=== PATIENT | female | born 1955 | race Caucasian/White ===

== ENCOUNTER → 2024-01-20 08:52 | Outpatient (REF) | payer OTHER, SELFPAY ==
[2024-01-20 10:26] LABS: HDL Cholesterol 74 mg/dl; LDL Cholesterol, Calculated 95 mg/dl; Total Cholesterol 183 mg/dl (50-199); Triglyceride 71 mg/dl (10-149); Very Low Density Lipoprotein 14 mg/dl (0-30)
== END ==
LOC: REG 08:52
PROVIDERS: ATTENDING PHYSICIAN Internal Medicine
DX: E78.2 Mixed hyperlipidemia (principal)
CPT/HCPCS: 36415; 80061

== ENCOUNTER → 2024-05-07 08:02 | Outpatient (REF) | payer OTHER, SELFPAY ==
[2024-05-07 10:08] LABS: Free T3 2.33 pg/ml (2.77-5.27); Free T4 1.29 ng/dl (0.78-2.19); Total Thyroxine 9.08 ug/dl (5.5-11.0)
[2024-05-07 10:21] LABS: TSH 1.96 uIU/ml (0.47-4.68)
== END ==
LOC: REG 08:02
PROVIDERS: ATTENDING PHYSICIAN Nurse Practitioner
DX: E03.9 Hypothyroidism, unspecified (principal)
CPT/HCPCS: 36415; 84436; 84439; 84443; 84481

== ENCOUNTER → 2024-06-11 07:08 | Outpatient (REF) | payer OTHER, SELFPAY | LOC: WDC 07:08 | PROVIDERS: ATTENDING PHYSICIAN Nurse Practitioner | DX: Z12.31 Encounter for screening mammogram for malignant neoplasm of breast (principal) | CPT/HCPCS: 77063; 77067 ==

== ENCOUNTER → 2024-08-27 08:39 | Outpatient (REF) | payer OTHER, SELFPAY ==
[2024-08-27 09:20] LABS: % Basophils 1.9 % (0-2); % Eosinophils 5.7 % (0-6); % Immature Granulocytes 0.2 % (0-0.5); % Lymphocytes 33.5 % (20.5-51.1); % Monocytes 11.1 % (1.7-9.3); % Neutrophils 47.6 % (42.2-75.2); Absolute Basophils 0.1 10^3/uL (0-0.2); Absolute Eosinophils 0.3 10^3/uL (0-0.7); Absolute Lymphocytes 1.6 10^3/uL (1.2-3.4); Absolute Monocytes 0.5 10^3/uL (0.1-0.6); Absolute Neutrophils 2.3 10^3/uL (1.4-6.5); Hematocrit 41.7 % (37.0-47.0); Hemoglobin 14.3 g/dL (12.0-16.0); Mean Corp Hgb Conc. 34.3 g/dL (33.0-37.0); Mean Corpuscular Hgb 33.8 pg (27.0-31.0); Mean Corpuscular Volume 98.6 fL (81.0-99.0); Mean Platelet Volume 9.8 fL (7.4-10.4); Nucleated Red Blood Cells % 0 %; Platelet Count 256 10^3/uL (130-400); Red Blood Cell Count 4.23 10^6/uL (4.20-5.40); Red Cell Dist. Width 12.8 % (11.5-14.5); White Blood Cell Count 4.8 10^3/uL (4.8-10.8)
[2024-08-27 09:50] LABS: ALT (SGPT) 11 U/L (0-35); AST (SGOT) 23 U/L (14-36); Albumin 4.2 g/dl (3.5-5.0); Alkaline Phosphatase 54 U/L (38-126); Blood Urea Nitrogen 19 mg/dl (7-17); Calcium 9.7 mg/dl (8.4-10.2); Carbon Dioxide 29 mmol/L (22-30); Chloride 103 mmol/L (98-107); Glucose 100 mg/dl (70-99); Sodium 141 mmol/L (135-145); Total Bilirubin 0.7 mg/dl (0.2-1.3); Total Cholesterol 182 mg/dl (50-199); Total Protein 6.7 g/dl (6.3-8.2); Triglyceride 60 mg/dl (10-149); Very Low Density Lipoprotein 12 mg/dl (0-30); eGFR > 60.00
[2024-08-27 10:09] LABS: HDL Cholesterol 74 mg/dl; LDL Cholesterol, Calculated 96 mg/dl; Potassium 6.1 mmol/L (3.5-5.1)
[2024-08-27 10:26] LABS: TSH 1.49 uIU/ml (0.47-4.68)
== END ==
LOC: REG 08:39
PROVIDERS: ATTENDING PHYSICIAN Nurse Practitioner; FAMILY PHYSICIAN Internal Medicine
DX: Z00.00 Encounter for general adult medical examination without abnormal findings (principal); R09.89 Other specified symptoms and signs involving the circulatory and respiratory systems; I50.22 Chronic systolic (congestive) heart failure; Z87.891 Personal history of nicotine dependence; E78.5 Hyperlipidemia, unspecified; E03.9 Hypothyroidism, unspecified
CPT/HCPCS: 36415; 80053; 80061; 84443; 85025

== ENCOUNTER → 2024-08-30 08:16 | Outpatient (REF) | payer OTHER, SELFPAY ==
[2024-08-30 10:48] LABS: ALT (SGPT) 11 U/L (0-35); AST (SGOT) 25 U/L (14-36); Albumin 2.7 g/dl (3.5-5.0); Alkaline Phosphatase 58 U/L (38-126); Blood Urea Nitrogen 18 mg/dl (7-17); Calcium 9.3 mg/dl (8.4-10.2); Carbon Dioxide 30 mmol/L (22-30); Chloride 102 mmol/L (98-107); Glucose 95 mg/dl (70-99); Potassium 4.7 mmol/L (3.5-5.1); Sodium 139 mmol/L (135-145); Total Bilirubin 0.5 mg/dl (0.2-1.3); Total Protein 6.6 g/dl (6.3-8.2); eGFR > 60.00
== END ==
LOC: REG 08:16
PROVIDERS: ATTENDING PHYSICIAN Nurse Practitioner; REFERRING PHYSICIAN Internal Medicine
DX: E87.5 Hyperkalemia (principal)
CPT/HCPCS: 36415; 80053

== ENCOUNTER → 2024-12-24 18:21 | Outpatient (REF) | payer OTHER, SELFPAY | LOC: MRI 3T 18:21 | PROVIDERS: ATTENDING PHYSICIAN Specialist; FAMILY PHYSICIAN Internal Medicine | DX: N28.89 Other specified disorders of kidney and ureter (principal) | CPT/HCPCS: 74183; A9575 ==

== ENCOUNTER → 2025-06-15 07:51 | Outpatient (REF) | payer OTHER, SELFPAY | LOC: WDC 07:51 | PROVIDERS: ATTENDING PHYSICIAN Nurse Practitioner | DX: Z12.31 Encounter for screening mammogram for malignant neoplasm of breast (principal) | CPT/HCPCS: 77063; 77067 ==

== ENCOUNTER 2025-06-16 08:08 | Outpatient (RCR) | payer OTHER, SELFPAY | END 2025-06-16 23:59 | disposition home or self-care (01) | LOC: RPT 08:08 | PROVIDERS: ATTENDING PHYSICIAN Internal Medicine Gastroenterology; FAMILY PHYSICIAN Nurse Practitioner | DX: M62.89 Other specified disorders of muscle (principal); K59.09 Other constipation; Z73.6 Limitation of activities due to disability | CPT/HCPCS: 97110; 97161; 97530 ==

== ENCOUNTER 2025-06-23 14:00 | Outpatient (RCR) | payer OTHER, SELFPAY | END 2025-06-23 23:59 | disposition home or self-care (01) | LOC: ROT 14:00 | PROVIDERS: ATTENDING PHYSICIAN Orthopaedic Surgery; FAMILY PHYSICIAN Internal Medicine | DX: M77.12 Lateral epicondylitis, left elbow (principal); Z73.6 Limitation of activities due to disability | CPT/HCPCS: 97010; 97035; 97110; 97140; 97166; 97535 ==

== ENCOUNTER 2025-06-27 09:44 | Outpatient (RCR) | payer OTHER, SELFPAY | END 2025-07-01 23:59 | disposition home or self-care (01) | LOC: ROT 09:44 | PROVIDERS: ATTENDING PHYSICIAN Orthopaedic Surgery; FAMILY PHYSICIAN Internal Medicine | DX: M77.12 Lateral epicondylitis, left elbow (principal); Z73.6 Limitation of activities due to disability | CPT/HCPCS: 97010; 97110; 97140 ==

== ENCOUNTER 2025-07-21 12:41 | Outpatient (RCR) | payer OTHER, SELFPAY | END 2025-07-21 23:59 | disposition home or self-care (01) | LOC: RPT 12:41 | PROVIDERS: ATTENDING PHYSICIAN Internal Medicine Gastroenterology; FAMILY PHYSICIAN Nurse Practitioner | DX: M62.89 Other specified disorders of muscle (principal); K59.09 Other constipation; Z73.6 Limitation of activities due to disability | CPT/HCPCS: 97110; 97112 ==

== ENCOUNTER → 2025-07-22 07:34 | Outpatient (REF) | payer OTHER, SELFPAY ==
[2025-07-22 08:31] LABS: Hematocrit 39.6 % (37.0-47.0); Hemoglobin 13.5 g/dL (12.0-16.0); Mean Corp Hgb Conc. 34.1 g/dL (33.0-37.0); Mean Corpuscular Volume 94.7 fL (81.0-99.0); Nucleated Red Blood Cells % 0 %; Platelet Count 288 10^3/uL (130-400); Red Cell Dist. Width 12.8 % (11.5-14.5)
[2025-07-22 08:54] LABS: Glycohemoglobin (HgbA1c) 5.5 % (4.0-5.6)
[2025-07-22 09:07] LABS: ALT (SGPT) 11 U/L (0-35); AST (SGOT) 25 U/L (14-36); Albumin 4.3 g/dl (3.5-5.0); Alkaline Phosphatase 60 U/L (38-126); Blood Urea Nitrogen 14 mg/dl (7-17); Calcium 9.5 mg/dl (8.4-10.2); Carbon Dioxide 29 mmol/L (22-30); Chloride 103 mmol/L (98-107); Glucose 87 mg/dl (70-99); HDL Cholesterol 81 mg/dl; LDL Cholesterol, Calculated 107 mg/dl; Magnesium 2.1 mg/dl (1.6-2.3); Potassium 5.0 mmol/L (3.5-5.1); Sodium 136 mmol/L (135-145); Total Protein 7.0 g/dl (6.3-8.2); Very Low Density Lipoprotein 13 mg/dl (0-30); eGFR > 60.00
[2025-07-22 09:33] LABS: TSH 1.77 uIU/ml (0.47-4.68)
== END ==
LOC: REG 07:34
PROVIDERS: ATTENDING PHYSICIAN Internal Medicine; FAMILY PHYSICIAN Internal Medicine
DX: I42.0 Dilated cardiomyopathy (principal); R09.89 Other specified symptoms and signs involving the circulatory and respiratory systems; E78.2 Mixed hyperlipidemia
CPT/HCPCS: 36415; 80053; 80061; 83036; 83735; 84443; 85025

== ENCOUNTER 2025-08-08 12:49 | Outpatient (RCR) | payer OTHER, SELFPAY | END 2025-08-09 10:18 | disposition home or self-care (01) | LOC: RPT 12:49 | PROVIDERS: ATTENDING PHYSICIAN Internal Medicine Gastroenterology; FAMILY PHYSICIAN Nurse Practitioner | DX: M62.89 Other specified disorders of muscle (principal); K59.09 Other constipation; Z73.6 Limitation of activities due to disability | CPT/HCPCS: 97110; 97530 ==

== ENCOUNTER → 2025-08-10 08:23 | Outpatient (REF) | payer OTHER, SELFPAY | LOC: REG 08:23 | PROVIDERS: ATTENDING PHYSICIAN Internal Medicine Gastroenterology; FAMILY PHYSICIAN Internal Medicine | DX: K59.01 Slow transit constipation (principal) | CPT/HCPCS: 82653; 82705 ==

== ENCOUNTER → 2025-09-01 07:30 | Outpatient (REF) | payer OTHER, SELFPAY ==
[2025-09-01 09:13] LABS: ALT (SGPT) < 10 U/L (0-35); AST (SGOT) 22 U/L (14-36); Albumin 4.1 g/dl (3.5-5.0); Alkaline Phosphatase 67 U/L (38-126); Total Protein 6.9 g/dl (6.3-8.2)
== END ==
LOC: REG 07:30
PROVIDERS: ATTENDING PHYSICIAN Internal Medicine Gastroenterology; FAMILY PHYSICIAN Internal Medicine
DX: E66.3 Overweight (principal); Z79.899 Other long term (current) drug therapy
CPT/HCPCS: 36415; 80076

== ENCOUNTER → 2025-11-22 14:30 | Outpatient (REF) | payer OTHER, SELFPAY | LOC: REG 14:30 | PROVIDERS: ATTENDING PHYSICIAN Internal Medicine Gastroenterology; FAMILY PHYSICIAN Internal Medicine | DX: R19.7 Diarrhea, unspecified (principal) | CPT/HCPCS: 87045; 87046; 87324; 87328; 87329; 87427; 87449 ==